=== PATIENT | female | born 2000 | race Caucasian/White ===

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

== ENCOUNTER → 2023-05-28 | Outpatient (CLI) | payer MEDICAID ==
--- NOTE | 2023-05-28 13:22 | Diagnostic Imaging Report ---
INDICATION: Routine care, anatomic survey. TECHNIQUE: Multiple Real-time grayscale images were obtained over the gravid uterus. COMPARISON: None available. FINDINGS: A single live intrauterine gestation is identified in a cephalic presentation. The placenta is anteriorly located without evidence of placenta previa or placental abruption. The amniotic fluid index is within normal limits measuring 13.3 cm with the largest single pocket measuring 4.4 cm. cardiac motion is documented at 160 BPM. The cervix is closed measuring near 6 cm. biometrics are symmetric. They are consistent with an estimated gestational age of 20 weeks and 6 days which is consistent with clinical dating. Intracranial contents and spine are unremarkable. The four-chamber heart, kidneys, urinary bladder, and three-vessel cord are unremarkable. Biometrical measurements are as follows: Biparietal 5.01 cm, age 21 weeks 2 days. Head circumference 18.39 cm, age 20 weeks 6 days. Abdominal circumference 14.81 cm, age 20 weeks 1 days. Femur length 3.52 cm, age 21 weeks 1 days. Sonographic estimate age: 20 weeks 6 days. Sonographic estimated date of delivery: 10/09/2023. Estimated Weight: 365 gm (+/- 54 gm). LMP percentile: 71%. heart rate: 160 beats per minute. number: 1 of 1. IMPRESSION: Single live intrauterine gestation in a cephalic presentation with an estimated gestational age of 20 weeks and 6 days; therefore, there is an estimated date of delivery based upon this examination of 10/09/2023. Findings are consistent with clinical dating. No acute abnormality or anomaly is identified on this examination. Dictated by: Dictated on workstation # [id number]
== END ==
LOC: RAD 09:59
PROVIDERS: ATTEND Nurse Practitioner Women's Health
DX: Z34.92 Encounter for supervision of normal pregnancy, unspecified, second trimester (principal); Z3A.20 20 weeks gestation of pregnancy
CPT/HCPCS: 76805

== ENCOUNTER 2023-08-02 18:16 | Outpatient (CLI) | payer MEDICAID ==
[~2023-08-02] VITALS: Ht 67 cm; Wt 122.0 kg
[2023-08-02 19:10] VITALS: BP 136/83
[2023-08-02 19:54] LABS: BACTERIA,URINE FEW /HPF; BILIRUBIN,URINE NEGATIVE (NEGATIVE); CALCIUM OXALATE CRYSTALS,UR RARE /LPF; CLARITY,URINE CLEAR; COLOR,URINE YELLOW; GLUCOSE, URINE (UA) NEGATIVE (NEGATIVE); KETONES,URINE TRACE (NEGATIVE); LEUKOCYTE ESTERASE ,URINE NEGATIVE (NEGATIVE); NITRITE,URINE NEGATIVE (NEGATIVE); PH,URINE 6.5 (5-9); PROTEIN,URINE NEGATIVE (NEGATIVE); RBC,URINE RARE /HPF
--- NOTE | 2023-08-02 20:03 | OB Triage Report ---
Standard Progress Note Progress Notes/Assess & Plan Date Seen by a Provider: Aug 02, 2023 Time Seen by a Provider: 20:00 Expected Date of Delivery: Oct 14, 2023 Gestational Age in Weeks: 29 Gestational Age in Days: 4 LMP/NESS Comment: This 23yo G1 presents @ 29wk with c/o vaginal dc FHT 130 reactive TOCOS none labs reviewed. neg Fern, nitrazine; UA some dehydration Progress/Assessment & Plan DC to home Keep next appt increase PO H2O Final Diagnosis IUP @ 29wk intact dehydration LILIA FRANKS DO Aug 02, 2023 20:02
== END 2023-08-02 20:20 | disposition home or self-care (01) ==
LOC: LDRP 18:16 → WSo 18:16
PROVIDERS: ATTEND Obstetrics & Gynecology
DX: O41.93X0 Disorder of amniotic fluid and membranes, unspecified, third trimester, not applicable or unspecified (principal); Z3A.29 29 weeks gestation of pregnancy
CPT/HCPCS: 81000; 87088; G0463; Q0114; 36415; 89060; 99213

== ENCOUNTER → 2023-09-07 | Outpatient (CLI) | payer MEDICAID | LOC: LABNPT 11:35 | PROVIDERS: ATTEND Nurse Practitioner Women's Health | DX: O13.9 Gestational [pregnancy-induced] hypertension without significant proteinuria, unspecified trimester (principal); Z3A.00 Weeks of gestation of pregnancy not specified | CPT/HCPCS: 82570; 84156 ==

== ENCOUNTER → 2023-09-17 | Outpatient (CLI) | payer MEDICAID | LOC: LABNPT 16:01 | PROVIDERS: ATTEND Nurse Practitioner Women's Health | DX: O13.9 Gestational [pregnancy-induced] hypertension without significant proteinuria, unspecified trimester (principal); Z3A.00 Weeks of gestation of pregnancy not specified | CPT/HCPCS: 82570; 84156 ==

== ENCOUNTER 2023-09-25 23:48 | Outpatient (CLI) | payer MEDICAID ==
[~2023-09-25] VITALS: Ht 170.2 cm; Wt 128.6 kg
[2023-09-26 00:05] VITALS: BP 135/91
[2023-09-26 00:23] VITALS: BP 131/84
[2023-09-26 00:24] LABS: CLARITY,URINE CLEAR; COLOR,URINE YELLOW; GLUCOSE, URINE (UA) NEGATIVE (NEGATIVE); PH,URINE 6.5 (5-9); PROTEIN,URINE NEGATIVE (NEGATIVE)
[2023-09-26 00:25] LABS: BILIRUBIN,URINE NEGATIVE (NEGATIVE); KETONES,URINE NEGATIVE (NEGATIVE); LEUKOCYTE ESTERASE ,URINE TRACE (NEGATIVE); NITRITE,URINE NEGATIVE (NEGATIVE)
[2023-09-26 00:26] LABS: BACTERIA,URINE MODERATE /HPF; RBC,URINE RARE /HPF; WBC,URINE RARE /HPF
[2023-09-26] MEDS ORDERED: PREN-142 PO (01:06)
[2023-09-26] MEDS ORDERED: CEPH500T PO (01:09)
[2023-09-26] MEDS ORDERED: CEPHALEXIN 250 MG CAPSULE PO ONE ×2 (01:13→01:15)
--- NOTE | 2023-09-26 08:33 | Physician Query-Final Dx ---
BECKY,09/26/23 0833: Clinic Account Progress/Dx Physician Query: Please give diagnosis Please include # weeks gestation Date of Service Sep 25, 2023 at 23:48 RISSA RAMÍREZ DO 09/26/23 1225: Clinic Account Progress/Dx DIAGNOSIS: Diagnosis 36 week IUP Uncomplicated UTI BECKY,NovSep 26, 2023 08:33 RISSA RAMÍREZ DO Sep 26, 2023 12:25
== END 2023-09-26 01:20 | disposition home or self-care (01) ==
LOC: LDRP 23:48 → WSo 23:48
PROVIDERS: ATTEND Obstetrics & Gynecology
DX: O23.43 Unspecified infection of urinary tract in pregnancy, third trimester (principal); Z3A.36 36 weeks gestation of pregnancy
CPT/HCPCS: 81000; 87077; 87088; 87186; G0463; 99213

== ENCOUNTER 2023-10-01 19:26 | Outpatient (CLI) | payer MEDICAID ==
[2023-10-01 20:13] VITALS: BP 137/85
[2023-10-01 20:24] VITALS: BP 137/85
[2023-10-01 20:30] VITALS: BP 136/85
[2023-10-01 20:38] LABS: BACTERIA,URINE FEW /HPF; BILIRUBIN,URINE NEGATIVE (NEGATIVE); CLARITY,URINE CLEAR; COLOR,URINE YELLOW; GLUCOSE, URINE (UA) NEGATIVE (NEGATIVE); KETONES,URINE NEGATIVE (NEGATIVE); LEUKOCYTE ESTERASE ,URINE TRACE (NEGATIVE); NITRITE,URINE NEGATIVE (NEGATIVE); PROTEIN,URINE NEGATIVE (NEGATIVE); WBC,URINE 0-2 /HPF
[2023-10-01 20:40] VITALS: BP 134/83
[2023-10-01 21:00] VITALS: BP 134/75
[2023-10-01] MEDS ORDERED: PROCHLORPERAZINE 10 MG TABLET PO ONE (21:00)
[2023-10-01] MEDS ORDERED: PROCHLORPERAZINE 10 MG TABLET ONE (21:11)
[2023-10-01 21:15] VITALS: BP 133/74
--- NOTE | 2023-10-01 22:13 | OB Triage Report ---
Standard Progress Note Progress Notes/Assess & Plan Date Seen by a Provider: Oct 01, 2023 Time Seen by a Provider: 21:30 Expected Date of Delivery: Oct 14, 2023 Gestational Age in Weeks: 38 Gestational Age in Days: 1 LMP/NESS Comment: This 23-year-old G1, P0 presents to labor and delivery at 38 weeks 1 day with complaint of headache. She states that her blood pressures have been slightly elevated in the office. Patient had PIH labs in the office all of which appeared to be normal FHR 150 Tocos occasional BP 130/70 Progress/Assessment & Plan IUP at 38 weeks 1 day PIH Headache. Resolved with Compazine Follow-up in office PIH precautions Labor precautions LILIA FRANKS DO Oct 01, 2023 22:13
== END 2023-10-01 21:45 ==
LOC: WSo 19:26 → LDRP 19:26 → WSo 21:45
PROVIDERS: ATTEND Obstetrics & Gynecology
DX: O26.893 Other specified pregnancy related conditions, third trimester (principal); R51.9 Headache, unspecified; Z3A.38 38 weeks gestation of pregnancy
CPT/HCPCS: 81000; G0463; 99213

== ENCOUNTER → 2023-10-01 | Outpatient (CLI) | payer MEDICAID ==
[~2023-10-01] MED LIST changes: +CEPH500T PO; +PREN-142 PO
== END ==
LOC: LABNPT 12:45
PROVIDERS: ATTEND Obstetrics & Gynecology
DX: O13.9 Gestational [pregnancy-induced] hypertension without significant proteinuria, unspecified trimester (principal); Z3A.00 Weeks of gestation of pregnancy not specified
CPT/HCPCS: 82570; 84156

== ENCOUNTER 2023-10-10 18:58 | Inpatient (IN) | payer MEDICAID ==
[2023-10-10] VITALS (14 sets, daily range): BP systolic 141–196; BP diastolic 76–113
[~2023-10-10] VITALS: Ht 170.2 cm; Wt 129.5 kg
[2023-10-10] MEDS ORDERED: LIDOCAINE 2% w/EPI 1:200,000 20 ML VIAL INJ PRN (19:45)
[2023-10-10] MEDS ORDERED: LACTATED RINGERS 1,000 ML 500 ML IV PRN (19:45)
[2023-10-10] MEDS ORDERED: NS (IVPB) 250 ML 250 ML IV ONE (20:00)
[2023-10-10 20:13] LABS: CLARITY,URINE CLEAR; COLOR,URINE YELLOW
[2023-10-10 20:14] LABS: BACTERIA,URINE MODERATE /HPF; BILIRUBIN,URINE NEGATIVE (NEGATIVE); CALCIUM OXALATE CRYSTALS,UR RARE /LPF; GLUCOSE, URINE (UA) NEGATIVE (NEGATIVE); KETONES,URINE NEGATIVE (NEGATIVE); LEUKOCYTE ESTERASE ,URINE TRACE (NEGATIVE); NITRITE,URINE NEGATIVE (NEGATIVE); PH,URINE 6.5 (5-9); PROTEIN,URINE 2+ (NEGATIVE); RBC,URINE 0-2 /HPF
[2023-10-10] MEDS ORDERED: TERBUTALINE INJ 1 MG/ML (BRETHINE) AMP SC PRN (20:15)
[2023-10-10 20:33] LABS: BASOPHILS # (AUTO) 0.1 10^3/uL (0.0-0.1); BASOPHILS % (AUTO) 0 % (0-10); EOSINOPHILS # (AUTO) 0.2 10^3/uL (0.0-0.3); EOSINOPHILS % (AUTO) 1 % (0-10); HEMATOCRIT 39 % (35-52); HEMOGLOBIN 12.6 g/dL (11.5-16.0); LYMPHOCYTES # (AUTO) 3.2 10^3/uL (1.0-4.0); LYMPHOCYTES % (AUTO) 23 % (12-44); MEAN CORPUSCULAR HEMOGLOBIN 30 pg (25-34); MEAN CORPUSCULAR HGB CONC 32 g/dL (32-36); MEAN CORPUSCULAR VOLUME 92 fL (80-99); MEAN PLATELET VOLUME 11.5 fL (9.0-12.2); MONOCYTES % (AUTO) 7 % (0-12); NEUTROPHILS # (AUTO) 9.5 10^3/uL (1.8-7.8); NEUTROPHILS % (AUTO) 68 % (42-75); PLATELET COUNT 262 10^3/uL (130-400)
[2023-10-10] MEDS ORDERED: NS (IVPB) 250 ML 250 ML ONE (21:13)
[2023-10-10] MEDS: D5 LR 1,000 ML IV SOLN 1,000 ML IV SCH (21:33)
[2023-10-10 21:36] LABS: ALBUMIN 3.5 GM/DL (3.2-4.5); POTASSIUM 3.7 MMOL/L (3.6-5.0)
[2023-10-10 21:38] LABS: CALCIUM 9.6 MG/DL (8.5-10.1)
[2023-10-10 21:39] LABS: TOTAL PROTEIN 7.1 GM/DL (6.4-8.2)
[2023-10-10 21:41] LABS: BILIRUBIN,TOTAL 0.3 MG/DL (0.1-1.0)
[2023-10-10 21:42] LABS: CREATININE SERUM 0.75 MG/DL (0.60-1.30)
[2023-10-10 21:46] LABS: URIC ACID 6.9 MG/DL (2.6-7.2)
[2023-10-10] MEDS: CATHETER FLUSH 10 ML SYR IV SCH (22:11)
[2023-10-10] MEDS ORDERED: MAGNESIUM 4 GM/100 ML IVPB 100 ML IV SCH (22:30)
[2023-10-10] MEDS ORDERED: hydrALAZINE INJECTION 20 MG/ML VIAL IV ONE (22:30)
[2023-10-10] MEDS ORDERED: CALCIUM GLUCONATE 10% 4.65 MEQ/10 ML VIAL IV SCH (22:30)
[2023-10-10] MEDS: MAGNESIUM SULFATE DRIP 500 ML IV SCH (23:35)
[2023-10-11] VITALS (115 sets, daily range): BP systolic 85–174; BP diastolic 44–108
[2023-10-11] MEDS ORDERED: FAMOTIDINE 20 MG TABLET PO ONE
[2023-10-11] MEDS ORDERED: HYDROmorphone INJECTION 2 MG/ML VIAL IV PRN (03:00)
[2023-10-11] MEDS: D5 LR 1,000 ML IV SOLN 1,000 ML IV SCH ×3 (05:09→20:53)
[2023-10-11] MEDS ORDERED: ACETAMINOPHEN 500 MG TABLET PO ONE ×2 (05:15→17:30)
[2023-10-11] MEDS ORDERED: ACETAMINOPHEN 500 MG TABLET ONE ×2 (05:19→17:35)
[2023-10-11] MEDS: CATHETER FLUSH 10 ML SYR IV SCH (06:00)
--- NOTE | 2023-10-11 08:13 | History & Physical-OB ---
OB - Chief Complaint & HPI Date/Time Date of Admission: Date of Admission: Oct 10, 2023 at 19:01 Date seen by a Provider: Oct 11, 2023 Time Seen by a Provider: 08:15 Chief Complaint/History OB-Reason for Admission/Chief: Induction of Labor Hx : 1 Hx Para: 0 Expected Date of Delivery: Oct 14, 2023 Gestational Age in Weeks: 39 Gestational Age in Days: 3 Admission Nurse Assessment Rev: Yes History of Labs A pos Antibody neg RI RPR NR HBsAg NR HIV NR GC neg GBS neg Allergies and Home Medications Allergies Coded Allergies: No Known Drug Allergies (Unverified , 02/27/17) Patient Home Medication List Home Medication List Reviewed: Yes Vit No.124/Iron/FA ( Vitamin Tablet) 27 Mg Iron-800 Mcg Tablet, 1 EACH PO DAILY, (Reported) Entered as Reported by: KATIE MEDINA on 09/26/23 0106 OB - History Hx of Present Care: Yes Ultrasounds: Normal mid trimester US Obstetrical Complications: None Medical Complications: None Delivery History Hx Blood Disorders: No Patient Past Medical History nc Social History/Family History 2nd Hand Smoke Exposure: No Immunizations Influenza Vaccine Up-to-Date: No; Not Current First/Initial COVID19 Vaccine: Moderna Second COVID19 Vaccination: Moderna Hepatitis A: Yes Hepatitis B: Yes OB - Admission Exam Physical Exam Vitals: Vital Signs 10/11/23 10/11/23 10/11/23 07:05 07:10 07:32 Temp 35.8 Pulse 93 Resp 20 B/P (MAP) 145/93 (110) Pulse Ox 99 O2 Delivery Room Air HEENT: NCAT Heart: Rhythm Normal Lungs: Clear Abdomen: Gravid Extremities: Normal Reflexes: Normal Cervical Dilatation: 2cm Effacement: 75% Station: -1 Membranes: Intact Heart Rate: 130's Accelerations: Accelerations Present Decelerations: No Decelerations Short Term Variability: Present Residential Variability: Average (6-25) Contractions on Admission: 6-10 Minutes Apart Intensity: Mild Labs Laboratory Tests Test 10/10/23 19:57 10/10/23 20:04 10/10/23 20:28 10/10/23 21:14 Range/Units Urine Color YELLOW Urine Clarity CLEAR Urine pH 6.5 5-9 Urine Specific [place] 1.020 1.016-1.022 Urine Protein 2+ H 63 H 6-12 MG/DL Urine Glucose (UA) NEGATIVE NEGATIVE Urine Ketones NEGATIVE NEGATIVE Urine Nitrite NEGATIVE NEGATIVE Urine Bilirubin NEGATIVE NEGATIVE Urine Urobilinogen 0.2 < = 1.0 MG/DL Urine Leukocyte Esterase TRACE H NEGATIVE Urine RBC (Auto) TRACE H NEGATIVE Urine RBC 0-2 /HPF Urine WBC 2-5 /HPF Urine Squamous Epithelial Cells 10-25 H /HPF Urine Crystals PRESENT H /LPF Urine Calcium Oxalate Crystals RARE H /LPF Urine Bacteria MODERATE H /HPF Urine Casts NONE /LPF Urine Mucus NEGATIVE /LPF Urine Culture Indicated NO Urine Creatinine 111 30-125 MG/DL Urine Protein/Creatinine Ratio 0.57 White Blood Count 14.0 H 4.3-11.0 10^3/uL Red Blood Count 4.25 3.80-5.11 10^6/uL Hemoglobin 12.6 11.5-16.0 g/dL Hematocrit 39 35-52 % Mean Corpuscular Volume 92 80-99 fL Mean Corpuscular Hemoglobin 30 25-34 pg Mean Corpuscular Hemoglobin Concent 32 32-36 g/dL Red Cell Distribution Width 13.9 10.0-14.5 % Platelet Count 262 130-400 10^3/uL Mean Platelet Volume 11.5 9.0-12.2 fL Immature Granulocyte % (Auto) 1 % Neutrophils (%) (Auto) 68 42-75 % Lymphocytes (%) (Auto) 23 12-44 % Monocytes (%) (Auto) 7 0-12 % Eosinophils (%) (Auto) 1 0-10 % Basophils (%) (Auto) 0 0-10 % Neutrophils # (Auto) 9.5 H 1.8-7.8 10^3/uL Lymphocytes # (Auto) 3.2 1.0-4.0 10^3/uL Monocytes # (Auto) 1.0 0.0-1.0 10^3/uL Eosinophils # (Auto) 0.2 0.0-0.3 10^3/uL Basophils # (Auto) 0.1 0.0-0.1 10^3/uL Immature Granulocyte # (Auto) 0.1 0.0-0.1 10^3/uL Syphilis Total Antibody Negative Negative Sodium Level 137 135-145 MMOL/L Potassium Level 3.7 3.6-5.0 MMOL/L Chloride Level 108 H 98-107 MMOL/L Carbon Dioxide Level 19 L 21-32 MMOL/L Anion Gap 10 5-14 MMOL/L Blood Urea Nitrogen 8 7-18 MG/DL Creatinine 0.75 0.60-1.30 MG/DL Estimat Glomerular Filtration Rate 116 BUN/Creatinine Ratio 11 Glucose Level 125 H 70-105 MG/DL Uric Acid 6.9 2.6-7.2 MG/DL Calcium Level 9.6 8.5-10.1 MG/DL Corrected Calcium 10.0 8.5-10.1 MG/DL Total Bilirubin 0.3 0.1-1.0 MG/DL Aspartate Amino Transf (AST/SGOT) 15 5-34 U/L Alanine Aminotransferase (ALT/SGPT) 15 0-55 U/L Alkaline Phosphatase 158 H 40-136 U/L Total Protein 7.1 6.4-8.2 GM/DL Albumin 3.5 3.2-4.5 GM/DL Test 10/10/23 22:32 Range/Units Magnesium Level 1.4 L 1.6-2.4 MG/DL OB - Assessment/Plan/Diagnosis Assessment Assessment: induction of labor Admission Dx 23 yo @ 39 weeks Mild PreE- BP elevated at admission w/ protein cr ratio elevated GBS neg Admission Status: Inpatient Order (span 2 midnights) Reason for Inpatient Admission: IOL at 39 weeks Plan Plan: Induction Induction Method: per Misoprostol Protocol RISSA RAMÍREZ DO Oct 11, 2023 08:13
[2023-10-11] MEDS ORDERED: fentaNYL 2 mcg/ml BUPIVA 0.125 100 ML ONE (08:41)
[2023-10-11] MEDS ORDERED: OXYTOCIN DRIP PRE-MIX 500 ML IV SCH (08:45)
[2023-10-11] MEDS: MAGNESIUM SULFATE DRIP 500 ML IV SCH ×2 (08:52→18:39)
[2023-10-11] MEDS ORDERED: fentaNYL INJECTION 100 MCG/2 ML VIAL ONE ×2 (09:37→21:00)
[2023-10-11] MEDS ORDERED: BUPIVACAINE 0.25% 10 ML VIAL ONE (09:37)
[2023-10-11] MEDS ORDERED: NALOXONE 0.4 MG/ML 1 ML VIAL IV PRN ×2 (13:30→20:30)
[2023-10-11] MEDS ORDERED: ONDANSETRON INJECTION 4 MG/2 ML (SDV) IV PRN (13:30)
[2023-10-11] MEDS ORDERED: CATHETER FLUSH 10 ML SYR IV PRN (13:30)
[2023-10-11] MEDS ORDERED: fentaNYL 2 mcg/ml BUPIVA 0.125 100 ML EPI SCH (13:30)
[2023-10-11] MEDS ORDERED: diphenhydrAMINE INJ 50 MG/ML VIAL IV PRN (13:30)
[2023-10-11] MEDS ORDERED: LACTATED RINGERS 1,000 ML 1,000 ML IV ONE (13:30)
[2023-10-11] MEDS ORDERED: FAMOTIDINE INJ 20MG/2ML VIAL ONE (19:50)
[2023-10-11] MEDS ORDERED: AMPICILLIN 1,000 MG VIAL (IV USE) ONE (19:50)
[2023-10-11] MEDS ORDERED: CITRIC ACID/SODIUM CITRATE ORAL SOLN 30 ML ONE (19:50)
[2023-10-11] MEDS ORDERED: NS (IVPB) 50 ML 0 ML ONE (19:50)
[2023-10-11] MEDS ORDERED: METOCLOPRAMIDE INJ 10 MG/2 ML ONE (19:50)
[2023-10-11] MEDS ORDERED: METOCLOPRAMIDE INJ 10 MG/2 ML IV ONE (20:00)
[2023-10-11] MEDS ORDERED: FAMOTIDINE INJ 20MG/2ML VIAL IV ONE (20:00)
[2023-10-11] MEDS ORDERED: CITRIC ACID/SODIUM CITRATE ORAL SOLN 30 ML PO ONE (20:00)
[2023-10-11] MEDS ORDERED: LACTATED RINGERS 1,000 ML 1,000 ML IV PRN ×2 (20:00)
--- NOTE | 2023-10-11 20:19 | Progress Note ---
Standard Progress Note Progress Notes/Assess & Plan Date Seen by a Provider: Oct 11, 2023 Time Seen by a Provider: 20:05 Progress/Assessment & Plan Patient demonstrates arrest of dilatation, has made it to 4-5 cm dilatation without any foreign exchange services manager the past 4 hours despite regular contractions. Patient also continues to have hyper and hypotensive episodes, with heart rate changes noted and PreE. Due to this, as well as arrest of dilatation, decision was made to proceed with PLTCS. Risk reviewed with patient, consent was obtained, and awaiting OR crew to begin. RISSA RAMÍREZ DO Oct 11, 2023 20:19
--- NOTE | 2023-10-11 20:25 | Discharge Inst-Women's Service ---
Discharge Inst-Women's Serv Depart Medication/Instructions New, Converted or Re-Newed RX: Transmitted to Pharmacy Problems Reviewed?: Yes Consults/Follow Up Additional Follow Up: Yes Activity Activity: Activity as Tolerated Driving Instructions: No Driving for 1 Week NO SMOKING: NO SMOKING Nothing Inside Vagina: No Douching, No [place], No Tampons Diet Discharge Diet: No Restrictions Symptoms to Report to : Bleeding Excessive, Pain Increased, Fever Over 101 Degrees F, Vaginal Bleeding Increase, Questions/Concerns For Any Problems or Questions: Contact Your Physician Skin/Wound Care Infection Signs and Symptoms: Increased Redness, Foul Odor of Wound, Increased Drainage, Skin Itchy or Has a Rash, Increased Swelling, Temperature Above 101 F Operative Area Clean and Dry: Keep Incision Clean/Dry Stitches/[place]/Dermabond: Dermabond, Care of Stitches Bathing Instructions: RISSA Andrews DO Oct 11, 2023 20:25
[2023-10-11] MEDS ORDERED: ceFAZolin INJECTION 2,000 MG ONE (20:26)
[2023-10-11] MEDS ORDERED: IBUP-844 PO (20:26)
[2023-10-11] MEDS ORDERED: ACHD5005 PO (20:26)
[2023-10-11] MEDS ORDERED: DOCU100C37 PO (20:26)
[2023-10-11] MEDS ORDERED: NS (IVPB) 50 ML 50 ML ONE (20:26)
[2023-10-11] MEDS ORDERED: NS (IVPB) 250 ML 250 ML ONE (20:29)
[2023-10-11] MEDS ORDERED: AZITHROMYCIN INJECTION 500 MG VIAL ONE (20:29)
[2023-10-11] MEDS ORDERED: AZITHROMYCIN INJECTION 500 MG in NS (IVPB) 250 ML 250 ML IV ONE (20:30)
[2023-10-11] MEDS ORDERED: MEASLES, MUMPS, RUBELLA VACCINE (MMR) SC SCH (20:30)
[2023-10-11] MEDS ORDERED: ceFAZolin INJECTION 2,000 MG in NS (IVPB) 50 ML 50 ML IV ONE (20:30)
[2023-10-11] MEDS ORDERED: Tetanus/Diphtheria/Pertussis (Acell) ADULT Vaccine 0.5 ML IM SCH (20:30)
[2023-10-11] MEDS ORDERED: ONDANSETRON INJECTION 4 MG/2 ML (SDV) IVP PRN (20:30)
[2023-10-11] MEDS ORDERED: BUPIVACAINE 0.5% 30 ML VIAL ONE (21:00)
[2023-10-11] MEDS: DOCUSATE SODIUM 100 MG CAPSULE PO SCH (21:00)
[2023-10-11] MEDS ORDERED: LIDOCAINE PF 2% 5 ML VIAL ONE (21:00)
[2023-10-11] MEDS ORDERED: OXYTOCIN DRIP PRE-MIX 500 ML IV ONE (21:08)
[2023-10-11] MEDS: OXYTOCIN DRIP PRE-MIX 500 ML IV SCH ×2 (21:30→22:44)
[2023-10-11] MEDS: KETOROLAC INJ 30 MG/ML VIAL IV SCH (21:30)
[2023-10-11] MEDS ORDERED: CATHETER FLUSH 10 ML SYR IV SCH (22:00)
[2023-10-12] VITALS (11 sets, daily range): BP systolic 119–156; BP diastolic 60–93
[2023-10-12] MEDS ORDERED: ACETAMINOPHEN 500 MG TABLET PO ONE (01:30)
[2023-10-12] MEDS: KETOROLAC INJ 30 MG/ML VIAL IV SCH ×3 (02:39→14:05)
--- NOTE | 2023-10-12 02:53 | OPERATIVE REPORT ---
PREOPERATIVE DIAGNOSES: 1. A 23-year-old G1, P0 at 39 weeks' gestation. 2. Mild preeclampsia. 3. Arrest of dilatation. 4. heart rates variable decelerations. POSTOPERATIVE DIAGNOSES: 1. A 23-year-old G1, P0 at 39 weeks' gestation. 2. Mild preeclampsia. 3. Arrest of dilatation. 4. heart rates variable decelerations. PROCEDURE: Primary low transverse section. SURGEON: Mo Hardy DO ANESTHESIA: Epidural, which was bolused. ESTIMATED BLOOD LOSS: 500 mL URINE OUTPUT: 200 mL clear at the end of the procedure. FLUIDS: 800 mL Lactated Ringer solution. FINDINGS: A live male infant weighing 8 pounds 11 ounces, Apgars of 8 and 9. Grossly normal appearing uterus, bilateral fallopian tubes, and ovaries. SPECIMEN SENT: Placenta. INDICATIONS FOR PROCEDURE: This 23-year-old female patient was brought in for induction of labor. At her time of induction, her blood pressures were elevated and urine protein creatinine ratio was found to be elevated giving a diagnosis of mild preeclampsia at the time of induction. Prior to that all of her preeclamptic labs have been negative. She was given misoprostol overnight for induction method. Artificial rupture of membranes was performed this morning followed by Pitocin augmentation. Epidural was placed and pain was controlled with her epidural. She progressed to 4-5 cm and continued to contract regularly for the next 4-5 hours with Pitocin augmentation; however, a caput developed and no progression of the station or dilation was noted after that point for the next 4.5-5 hours. Due to this as well as the patient's diagnosis of preeclampsia, labile blood pressures and occasional heart rate decelerations, the decision was made to proceed with primary . Risks of the procedure were reviewed with the patient in detail including risk of bleeding, infection, damage to surrounding structures including but not limited to bowel, bladder, ureter, kidneys, possible need for reoperation, postoperative complications that may occur recovery timeframe risk from anesthesia and even . After everything was discussed with the patient in detail, consent was obtained, the patient was taken to the operating room. OPERATIVE REPORT IN DETAIL: Once in the operating room, epidural analgesia was bolused and found to be adequate. She was placed in the supine position with leftward tilt, prepped and draped in normal sterile fashion. Timeout was performed. Anesthesia was tested. I then make a Pfannenstiel skin incision with a knife and carried underlying fascia using Bovie cautery. The fascial incision was extended laterally using Bovie cautery. The superior aspect of the fascial incision was then grasped with Kal clamps, tented upward, and dissected off the underlying rectus muscles. The inferior aspect of the fascial incision was then grasped with Kal clamps, tented up and dissected off overlying rectus muscles. The rectus muscles were dissected down the midline using sharp dissection, which exposed the peritoneum, which I entered bluntly using blunt traction. Fabio ring retractor was placed in the peritoneal incision, which offers excellent lateral retraction. I identified the lower uterine segment, found to be thinned out and make a low transverse incision to the vesicouterine peritoneum and bluntly dissected off the lower uterine segment, creating a bladder flap. I then proceeded with my myotomy until membranes were visualized, at which point I extended the uterine incision laterally and superiorly using bandage scissors. was found in vertex presentation with gentle fundal pressure. The 's head was elevated up the incision where it was noted to be occiput posterior. There was a nuchal cord reduced x1 after the head was delivered. The nares and oropharynx were bulb suctioned. Anterior and posterior shoulders were delivered. The was brought to the operative field where cord was doubly clamped and cut. Infant handed off to waiting nurses in attendance. Cord blood was collected. Three-vessel cord, intact placenta was delivered spontaneously thereafter. IV Pitocin was initiated to facilitate uterine contraction. Uterine fundus confirmed by manual massage. The uterus was then exteriorized and cleared endometrial clots and debris. I then proceeded with closing the uterine incision using 0 Vicryl suture in a running locked fashion. Second layer of imbricating 0 Monocryl was placed. Excellent hemostasis was noted after doing this. I then placed the uterus back in pelvis and copiously irrigated the pelvis using normal saline. Once again, there was no active bleeding noted from any of my dissection planes. I placed Interceed antiadhesive over my low transverse incision. I removed the Fabio ring retractor and then proceeded to close the peritoneum using 3-0 Vicryl suture in a running fashion. The rectus muscles were reapproximated using 3-0 Vicryl suture in interrupted fashion. The fascia was reapproximated using 0 Vicryl suture in a running fashion. Subcutaneous tissue was reapproximated using 3-0 plain interrupted subcutaneous stitch and skin was reapproximated using 4-0 Monocryl running subcuticular. Dermabond was applied to incision, sterile dressing with adhesive white tape. The patient tolerated the procedure well and sent to recovery area in stable condition. Lap and sponge counts were correct at the end of the procedure. Instrument counts correct as well. Two grams of Ancef, 500 mg of azithromycin were given preoperatively for infection prophylaxis. Job ID: [id number] DocumentID: [id number] Dictated Date: 10/11/2023 21:30:53 Fire Assistant Date: 10/12/2023 02:50:00 Dictated By: DO MARINA PAL
[2023-10-12] MEDS: MAGNESIUM SULFATE DRIP 500 ML IV SCH (05:09)
[2023-10-12 06:08] LABS: BASOPHILS % (AUTO) 0 % (0-10); EOSINOPHILS % (AUTO) 0 % (0-10); HEMATOCRIT 29 % (35-52); HEMOGLOBIN 9.5 g/dL (11.5-16.0); LYMPHOCYTES # (AUTO) 2.7 10^3/uL (1.0-4.0); LYMPHOCYTES % (AUTO) 17 % (12-44); MEAN CORPUSCULAR HEMOGLOBIN 30 pg (25-34); MEAN CORPUSCULAR HGB CONC 33 g/dL (32-36); MEAN CORPUSCULAR VOLUME 89 fL (80-99); MEAN PLATELET VOLUME 11.3 fL (9.0-12.2); MONOCYTES # (AUTO) 1.1 10^3/uL (0.0-1.0); MONOCYTES % (AUTO) 7 % (0-12); NEUTROPHILS # (AUTO) 11.6 10^3/uL (1.8-7.8); NEUTROPHILS % (AUTO) 75 % (42-75); PLATELET COUNT 215 10^3/uL (130-400); WHITE BLOOD COUNT 15.5 10^3/uL (4.3-11.0)
--- NOTE | 2023-10-12 07:13 | Postpartum Progress Note ---
Note Note Day # 1 Subjective: Patient is without complaints, wanting catheter out and to eat. Tolerating a clear diet without nausea or vomiting. Normal lochia. Pain is well controlled with oral pain medications. Mag infused overnight, patient still with prado in place Objective: Physical Exam: General - Alert and oriented, no apparent distress Abdomen - Soft, appropriately tender to palpation, non-distended, fundus firm at umbilicus Extremities - no edema, negative Carmen's bilaterally Incision- c/d/i Assessment: POD 1 PLTCS Mild PreE- s/p 12 hrs pp MgSO4 infusion and BP still labile Acute blood loss anemia Plan: Routine care. DC MgSO4 this am and prado cath Advance diet to regular Starting Labetalol 300 bid Encourage breast feeding. Encourage ambulation. Ferrous sulfate supplementation. Plan for discharge tomorrow pending BP control Vitals - Labs Vital Signs - I&O Vital Signs Date Time Temp Pulse Resp B/P (MAP) Pulse Ox O2 Delivery O2 Flow Rate FiO2 10/12/23 06:00 99 156/92 (113) 10/12/23 05:02 35.9 107 20 151/93 (112) 100 Room Air 10/12/23 04:00 111 135/80 (98) 10/12/23 02:56 36.7 10/12/23 02:00 101 144/90 (108) 10/12/23 01:30 95 18 140/83 (102) 10/12/23 01:00 95 140/83 (102) Room Air 10/12/23 00:00 106 18 148/90 (109) 10/12/23 00:00 106 148/90 (109) Room Air 10/11/23 23:53 36.8 104 22 157/93 (114) 100 Room Air 10/11/23 22:30 36.4 16 133/83 (100) 98 Room Air 10/11/23 22:15 36.4 12 131/82 (98) 99 Room Air 10/11/23 22:00 35.9 17 130/77 (94) 100 Room Air 10/11/23 21:45 20 119/64 (82) 100 Room Air 10/11/23 21:30 36.8 18 109/67 (81) 100 Room Air 10/11/23 20:26 117 127/69 (88) 98 Room Air 10/11/23 20:11 120 133/73 (93) 99 Room Air 10/11/23 20:02 114 20 136/64 (88) 10/11/23 20:02 36.0 114 20 136/64 (88) 100 10/11/23 19:57 116 96/44 (61) 96 10/11/23 19:56 134 95/61 (72) 98 Room Air 10/11/23 19:55 118 97/61 (73) 10/11/23 19:53 117 91/53 (66) 100 Room Air 10/11/23 19:50 109 95/51 (66) 100 Room Air 10/11/23 19:47 104 97/55 (69) 10/11/23 19:46 107 99/52 (68) 10/11/23 19:45 109 102/55 (71) 99 Room Air 10/11/23 19:42 106 109/55 (73) 10/11/23 19:41 107 111/59 (76) 10/11/23 19:40 102 107/57 (74) 10/11/23 19:39 101 115/60 (78) 10/11/23 19:38 106 110/58 (75) 10/11/23 19:36 102 110/56 (74) 10/11/23 19:35 103 117/65 (82) 10/11/23 19:34 107 113/59 (77) 10/11/23 19:33 111 115/58 (77) 10/11/23 19:25 117 130/75 (93) 95 Room Air 10/11/23 19:12 119 128/67 (87) 95 Room Air 10/11/23 18:57 108 18 139/75 (96) 10/11/23 18:56 37.0 108 139/74 (95) 96 Room Air 10/11/23 18:41 110 131/58 (82) 95 Room Air 10/11/23 18:27 108 126/65 (85) 96 Room Air 10/11/23 18:12 99 119/70 (86) 93 Room Air 10/11/23 18:00 110 18 113/62 (79) 10/11/23 17:57 110 113/62 (79) 93 Room Air 10/11/23 17:41 110 121/60 (80) 94 Room Air 10/11/23 17:25 109 121/64 (83) 95 Room Air 10/11/23 17:00 98 18 134/81 (98) 10/11/23 16:42 100 127/79 (95) 95 Room Air 10/11/23 16:25 96 118/70 (86) 95 Room Air 10/11/23 16:14 105 112/57 (75) 95 Room Air 10/11/23 15:57 101 18 108/53 (71) 10/11/23 15:42 115 139/68 (91) 96 Room Air 10/11/23 15:26 36.2 115 140/82 (101) 95 Room Air 10/11/23 15:12 106 140/84 (102) 95 Room Air 10/11/23 15:00 108 18 143/81 (101) 10/11/23 14:55 108 143/81 (101) 94 Room Air 10/11/23 14:40 104 142/83 (102) 94 Room Air 10/11/23 14:25 104 140/80 (100) 95 Room Air 10/11/23 14:00 104 18 131/73 (92) 10/11/23 13:55 104 131/72 (91) 95 Room Air 10/11/23 13:40 97 136/75 (95) 94 Room Air 10/11/23 13:25 98 130/74 (92) 95 Room Air 10/11/23 13:10 117 18 129/80 (96) 10/11/23 12:50 96 141/75 (97) 95 Room Air 10/11/23 12:35 94 140/78 (98) 95 Room Air 10/11/23 12:23 93 145/76 (99) 95 Room Air 10/11/23 12:15 36.0 90 145/75 (98) 95 Room Air 10/11/23 12:10 93 18 142/70 (94) 10/11/23 12:00 94 139/75 (96) 94 Room Air 10/11/23 11:43 93 134/75 (94) 96 Room Air 10/11/23 11:30 91 134/81 (98) 100 Room Air 10/11/23 11:15 93 132/76 (94) 100 Room Air 10/11/23 11:10 88 18 137/78 (97) 10/11/23 11:05 112 128/68 (88) 100 Room Air 10/11/23 11:00 93 125/65 (85) 100 Room Air 10/11/23 10:55 88 116/61 (79) 100 Room Air 10/11/23 10:51 90 108/59 (75) 100 Room Air 10/11/23 10:48 88 106/55 (72) 100 Room Air 10/11/23 10:45 93 95/53 (67) 100 Room Air 10/11/23 10:40 93 108/53 (71) 100 Room Air 10/11/23 10:35 86 109/54 (72) 100 Room Air 10/11/23 10:31 83 106/54 (71) 100 Room Air 10/11/23 10:27 85 94/52 (66) 100 Room Air 10/11/23 10:23 92 91/55 (67) 100 Room Air 10/11/23 10:19 78 85/46 (59) 97 Room Air 10/11/23 10:15 81 85/46 (59) 99 Room Air 10/11/23 10:11 84 94/54 (67) 99 Room Air 10/11/23 10:10 88 18 94/54 (67) 10/11/23 10:07 83 95/52 (66) 99 Room Air 10/11/23 10:05 75 87/50 (62) 99 Room Air 10/11/23 10:03 67 85/44 (58) 97 Room Air 10/11/23 10:00 107 150/65 (93) 97 Room Air 10/11/23 09:55 117 158/77 (104) 100 Room Air 10/11/23 09:50 100 172/88 (116) 100 Room Air 10/11/23 09:45 115 168/90 (116) 100 Room Air 10/11/23 09:32 121 170/108 (128) 100 Room Air 10/11/23 09:10 88 20 174/96 (122) 10/11/23 08:34 93 163/96 (118) 99 Room Air 10/11/23 08:05 90 20 149/80 (103) 10/11/23 07:32 93 145/93 (110) 99 Room Air I & O 10/12/23 07:00 Intake Total 4755 ml Output Total 3635 ml Balance 1120 ml Labs Laboratory Tests 10/12/23 05:31: White Blood Count 15.5H, Red Blood Count 3.22L, Hemoglobin 9.5#L, Hematocrit 29L , Mean Corpuscular Volume 89, Mean Corpuscular Hemoglobin 30, Mean Corpuscular Hemoglobin Concent 33, Red Cell Distribution Width 13.9, Platelet Count 215, Mean Platelet Volume 11.3, Immature Granulocyte % (Auto) 1, Neutrophils (%) (Auto) 75, Lymphocytes (%) (Auto) 17, Monocytes (%) (Auto) 7, Eosinophils (%) (Auto) 0, Basophils (%) (Auto) 0, Neutrophils # (Auto) 11.6H, Lymphocytes # (Auto) 2.7, Monocytes # (Auto) 1.1H, Eosinophils # (Auto) 0.0, Basophils # (Auto) 0.0, Immature Granulocyte # (Auto) 0.1 RISSA RAMÍREZ DO Oct 12, 2023 07:12
[2023-10-12] MEDS: HYDROcodone/ACETAMINOPHEN 5 MG/325 MG TABLET PO PRN ×2 (07:58→18:36)
[2023-10-12] MEDS: LABETALOL 200 MG TABLET PO SCH ×2 (08:24→20:33)
[2023-10-12] MEDS: DOCUSATE SODIUM 100 MG CAPSULE PO SCH ×2 (08:24→20:33)
--- NOTE | 2023-10-12 14:38 | Anesthesia-Regional Post-Op ---
Regional Patient Condition Mental Status: Alert, Oriented x3 Circulation: Same as Pre-Op Headache: Absent Sensation: Full Recovery Motor Block: Absent Post Op Complications Complications None Follow Up Care/Instructions Patient Instructions None needed. Anesthesia/Patient Condition Patient is doing well, no complaints, stable vital signs, no apparent adverse anesthesia problems. No complications reported per nursing. DREAD BUTLER CRNA Oct 12, 2023 14:38
[2023-10-12] MEDS: IBUPROFEN 600 MG TABLET PO SCH (20:32)
[2023-10-13] MEDS: HYDROcodone/ACETAMINOPHEN 5 MG/325 MG TABLET PO PRN ×3 (00:57→15:22)
[2023-10-13] MEDS: IBUPROFEN 600 MG TABLET PO SCH ×3 (02:36→15:23)
[2023-10-13 02:40] VITALS: BP 125/59
[2023-10-13 08:45] VITALS: BP 128/64
[2023-10-13] MEDS: DOCUSATE SODIUM 100 MG CAPSULE PO SCH (08:47)
[2023-10-13] MEDS: LABETALOL 200 MG TABLET PO SCH (08:48)
[2023-10-13] MEDS ORDERED: SIMETHICONE 80 MG CHEWABLE TABLET PO PRN (09:00)
--- NOTE | 2023-10-13 09:03 | Postpartum Progress Note ---
Post Op Post-operative Day #2 Subjective: Patient is postop day #2 status post low transverse section. She is ambulating and voiding. She is tolerating her diet. She denies any headaches, vision changes, nausea/vomiting or epigastric pain. Patient is formula feeding Objective: Blood pressures have been 120s/70s since yesterday afternoon. Physical Exam: General - Alert and oriented, no apparent distress Abdomen - Soft, appropriately tender to palpation, non-distended, fundus firm at umbilicus Incision - clean, dry and intact; no erythema or induration, no drainage Lochia minimal Extremities - no edema, negative Carmen's bilaterally Assessment: [] post-operative day # 2, status post LTCS. Recovering well, hemodynamically stable Plan: Routine post-operative care. Encourage breast feeding. Encourage ambulation. VTE prophylaxis: SCDs. Ferrous sulfate supplementation. Plan for discharge [] Vitals - Labs Vital Signs - I&O Vital Signs Date Time Temp Pulse Resp B/P (MAP) Pulse Ox O2 Delivery O2 Flow Rate FiO2 10/13/23 08:45 36.6 85 18 128/64 (85) 98 Room Air 10/13/23 02:40 36.7 98 18 125/59 (81) 96 Room Air 10/12/23 20:30 36.7 93 18 126/78 (94) 98 Room Air 10/12/23 17:15 36.2 92 18 119/75 (90) Room Air 10/12/23 14:00 35.7 99 18 119/60 (79) 96 Room Air I & O 10/13/23 06:59 Intake Total 800 ml Output Total 250 ml Balance 550 ml LILIA FRANKS DO Oct 13, 2023 09:03
--- NOTE | 2023-10-13 09:12 | Discharge Summary ---
Discharge Summary Hospital Course Problems Reviewed?: Yes Hospital Course Date of Admission: Oct 10, 2023 at 19:01 Admission Diagnosis : Family Physician/Provider: Hany Rasmussen DO Date of Discharge: 10/13/23 Discharge Diagnosis: s/p Primary LTCS preeclampsia Hospital Course: Patient was admitted for induction of labor secondary to preeclampsia. Patient was 39 weeks EGA and started having elevated blood pressures. She was admitted for an induction and during that time she was placed on magnesium sulfate secondary to her elevated pressures and preeclampsia. heart tones were shown to have decelerations and there was an arrest of labor at 5 cm that was decided to take her to a primary low-transverse section where she delivered a liveborn male . Postoperatively her magnesium stayed on for 24 hours her pressure started to resolve around 1400 on postop day #2 and her pressures remained stable in the 120s/70s. She denied any PIH symptoms: Headaches, nausea vomiting, epigastric pain, vision changes. She stated that she was feeling much better and she was ready to go home. Hemoglobin postoperatively was 9.5. Patient was given iron supplementation to continue. Patient was instructed to follow-up within 3 to 5 days for blood pressure check. Patient was given PIH precautions and discharge information was also discussed with patient. Patient is unsure for control options. She will discuss with Dr. RAMÍREZ at her visit. Labs and Pending Lab Test: Home Meds Active Docusate Sodium 100 Mg Capsule 100 Mg PO BID PRN Hydrocodone-Acetamin 5-325 mg (Hydrocodone/Acetaminophen) 5 Mg-325 Mg Tablet 1-2 Ea PO Q6HR PRN Ibu (Ibuprofen) 600 Mg Tablet 600 Mg PO Q6H Reported Vitamin Tablet ( Vit No.124/Iron/FA) 27 Mg Iron-800 Mcg Tablet 1 Each PO DAILY Activity: Activity as Tolerated Driving Instructions: No Driving for 1 Week NO SMOKING: NO SMOKING Nothing Inside Vagina: No Douching, No [place], No Tampons Discharge Diet: Regular Diet Symptoms to Report to : Pain Increased, Constipation(Persistant), Fever Over 101 Degrees F, Pain/Pressure in Chest, Vaginal Bleeding Increase, Lightheadedness, Vaginal Discharge Foul, Dizziness/Fainting, Nausea/Vomiting, Shortness of Breath For Any Problems or Questions: Go to Emergency Room Infection Signs and Symptoms: Increased Redness, Foul Odor of Wound, Increased Drainage, Skin Itchy or Has a Rash, Increased Swelling, Temperature Above 101 F Operative Area Clean and Dry: Keep Incision Clean/Dry Stitches/[place]/Dermabond: Dermabond Discharge Physical Examination Allergies: Coded Allergies: No Known Drug Allergies (Unverified , 02/27/17) Vitals & I&Os Vital Signs Date Time Temp Pulse Resp B/P (MAP) Pulse Ox O2 Delivery O2 Flow Rate FiO2 10/13/23 08:45 36.6 85 18 128/64 (85) 98 Room Air Discharge Summary Date of Admission Oct 10, 2023 at 19:01 Date of Discharge Discharge Date: Oct 13, 2023 Supervisory-Addendum Brief Verification & Attestation Participated in pt care: history, MDM, physical Personally performed: exam, history, MDM, supervision of care Care discussed with: Medical Student, other Procedures: n/a Results interpretation: Verified all documentation I saw and examined this patient in the /postoperative period. LILIA FRANKS DO Oct 13, 2023 09:12
[2023-10-13] MEDS ORDERED: FERR-74 PO (09:13)
[2023-10-13] MEDS ORDERED: LABE200T10 PO (09:44)
[2023-10-13 15:22] VITALS: BP 132/62
[2023-10-13 15:55] VITALS: BP 132/62
== END 2023-10-13 15:55 | disposition home or self-care (01) | DRG 787 ==
LOC: WSo 18:58 → LDRP 19:01
PROVIDERS: ADMIT Obstetrics & Gynecology; ATTEND Obstetrics & Gynecology
PROC: 10D00Z1 Extraction of Products of Conception, Low, Open Approach (ICD-10-PCS; principal; 2023-10-11 20:42)
DX: O14.04 Mild to moderate pre-eclampsia, complicating childbirth (principal); D62 Acute posthemorrhagic anemia; Z3A.39 39 weeks gestation of pregnancy; Z37.0 Single live birth; O76 Abnormality in fetal heart rate and rhythm complicating labor and delivery; O62.0 Primary inadequate contractions; O90.81 Anemia of the puerperium
CPT/HCPCS: 36415; 80053; 81000; 82570; 83735; 84156; 84550; 85025; 86780; 86850; 86900; 86901